=== PATIENT | female | born 1945 | race Caucasian/White ===

== ENCOUNTER 2016-12-15 07:10 | Day surgery (SDC) | payer OTHER, BC ==
[2016-12-15 07:54] VITALS: BMI 51.2
[2016-12-15] MEDS ORDERED: SUCCINYLCHOLINE CHLORIDE 200 MG/10 ML VIAL ONE (07:58)
[2016-12-15] MEDS ORDERED: PHENYLEPHRINE HCL 10 MG/1 ML SINGLE DOSE VIAL ONE (07:58)
[2016-12-15] MEDS ORDERED: LIDOCAINE HCL/PF 2% SDV 5ML VIAL ONE (07:58)
[2016-12-15] MEDS ORDERED: PROPOFOL 20 ML ONE ×2 (07:58)
[2016-12-15 09:11] VITALS: TEMP 97.7
[2016-12-15 10:23] VITALS: BP 126/59; PULSE 58
--- NOTE | 2016-12-17 11:20 | PATH ---
Surgical Pathology Report Patient Name: GUS GENTILE [facility]. Rec. #: [id number] /Age/Gender: 1945 (Age: 71) / F Account: [id number] Location: [facility]-ENDOSCOPY Taken: 12/15/2016 Received: 12/15/2016 Reported: 12/16/2016 Physicians: Genaro Kitchen M.D. Specimen(s) Received A: BX SMALL INTESTINE B: BX STOMACH C: RIGHT COLON POLYP D: BX SIGMOID COLON POLYP Clinical History Iron deficiency anemia Duodenitis, gastritis, hiatal hernia, AVM, diverticulosis, colon polyps, redundant sigmoid colon Final Diagnosis A. SMALL INTESTINE, BIOPSY: DUODENAL TYPE MUCOSA WITH CHRONIC INFLAMMATION, [place]ARE[place]'S GLANDS HYPERPLASIA AND FOCAL MILD VILLOUS FLATTENING; NO INCREASE IN INTRAEPITHELIAL LYMPHOCYTES (SEE COMMENT). Comment: The finding of mild villous flattening is nonspecific and may be seen in gluten sensitive enteropathy (see with disease) and chronic duodenitis. In the presence of chronic inflammation the finding is likely related to chronic duodenitis. Serological correlations are suggested if clinically indicated. B. STOMACH, BIOPSY: GASTRIC OXYNTIC MUCOSA WITH MODERATE CHRONIC GASTRITIS. IMMUNOSTAIN FOR H. PYLORI IS NEGATIVE FOR ORGANISMS. C. COLON, RIGHT, POLYP, POLYPECTOMY: FRAGMENTS OF TUBULAR ADENOMA. D. COLON, SIGMOID, POLYP, BIOPSY: FRAGMENTS OF HYPERPLASTIC POLYP. Electronically Signed Saulo Sanchez M.D. Gross Description A. Received in formalin, labeled "biopsy small intestine" are 3 carras[place], irregular portions of soft tissue ranging from 0.2-0.4 cm in greatest dimension. The specimens are submitted in toto in one cassette. B. Received in formalin, labeled "biopsy stomach" are 2 carrasco, irregular portions of soft tissue measuring 0.1 and 0.6 cm in greatest dimension. The specimens are submitted in toto in one cassette. C. Received in formalin, labeled "right colon polyp" are 2 carrasco, irregular portions of soft tissue averaging 0.2 cm in greatest dimension. The specimens are submitted in toto in one cassette. D. Received in formalin, labeled "biopsy sigmoid colon polyp" are 2 carrasco, irregular portions of soft tissue measuring 0.2 and 0.3 cm in greatest dimension. The specimens are submitted in toto in one cassette. DL/12/15/2016 [facility]/12/15/2016
== END 2016-12-15 10:36 | disposition home or self-care (01) ==
LOC: JASU-ENDO 07:10
PROVIDERS: ATTEND Internal Medicine Gastroenterology
PROC: 0DBN8ZX Excision of Sigmoid Colon, Via Natural or Artificial Opening Endoscopic, Diagnostic (ICD-10-PCS; 2016-12-15)
PROC: 0DB98ZX Excision of Duodenum, Via Natural or Artificial Opening Endoscopic, Diagnostic (ICD-10-PCS; 2016-12-15)
PROC: 0DB68ZX Excision of Stomach, Via Natural or Artificial Opening Endoscopic, Diagnostic (ICD-10-PCS; 2016-12-15)
PROC: 0DBK8ZX Excision of Ascending Colon, Via Natural or Artificial Opening Endoscopic, Diagnostic (ICD-10-PCS; principal; 2016-12-15 08:00)
DX: D50.9 Iron deficiency anemia, unspecified (principal); K55.20 Angiodysplasia of colon without hemorrhage; D12.2 Benign neoplasm of ascending colon; D12.5 Benign neoplasm of sigmoid colon; K57.30 Diverticulosis of large intestine without perforation or abscess without bleeding; K64.8 Other hemorrhoids; K29.80 Duodenitis without bleeding; K44.9 Diaphragmatic hernia without obstruction or gangrene; K29.70 Gastritis, unspecified, without bleeding; K29.71 Gastritis, unspecified, with bleeding
CPT/HCPCS: 88305-TC; 88342-TC

== ENCOUNTER 2020-01-30 08:07 | Day surgery (SDC) | payer OTHER, BC ==
[2020-01-30 08:37] VITALS: BMI 45.7
[2020-01-30 09:53] VITALS: TEMP 97.7
[2020-01-30 10:43] VITALS: BP 137/48; PULSE 60
--- NOTE | 2020-02-01 15:44 | PATH ---
Surgical Pathology Report Patient Name: GUS GENTILE [facility]. Rec. #: [id number] /Age/Gender: 1945 (Age: 74) / F Account: [id number] Location: U-ENDOSCOPY Taken: 01/30/2020 Received: 01/30/2020 Reported: 02/01/2020 Physicians: Esteban Dias M.D. Specimen(s) Received A: SECOND PORTION DUODENAL AND DUODENAL BULB B: ANTRUM C: DISTAL AND MID ESOPHAGUS D: CECAL POLYP E: RIGHT COLON POLYP F: PROXIMAL TRANSVERSAL COLON POLYP G: SIMOID COLON POLYPS H: RECTAL POLYP Clinical History GERD, colon polyps surveillance Postoperative diagnosis: Hiatal hernia, GERD, diverticulosis, colon polyps, AVM Final Diagnosis A. SECOND PORTION DUODENUM AND DUODENAL BULB, BIOPSY: DUODENAL MUCOSA WITH NONSPECIFIC CHRONIC DUODENITIS B. ANTRUM, BIOPSY: GASTRIC MUCOSA WITH CHRONIC GASTRITIS. IMMUNOSTAIN FOR H. PYLORI IS NEGATIVE. NEGATIVE FOR INTESTINAL METAPLASIA. Comment: Immunostain for H. pylori performed at [facility]/[place], [place] ([id number]) and interpreted at [facility] Positive and negative controls (internal if applicable) show appropriate results. C. DISTAL AND MID ESOPHAGUS, BIOPSY: SQUAMOUS MUCOSA WITH NO SIGNIFICANT PATHOLOGIC CHANGE. NO HISTOLOGIC EVIDENCE OF EOSINOPHILIC ESOPHAGITIS. D. CECAL POLYP, BIOPSY: COLONIC MUCOSA WITH BENIGN REACTIVE INVASIVE IN THE LAMINA PROPRIA. E. RIGHT COLON POLYP, POLYPECTOMY: TUBULAR ADENOMA. F. PROXIMAL TRANSVERSE COLON POLYP, POLYPECTOMY: HYPERPLASTIC POLYP. G. SIGMOID COLON POLYPS, POLYPECTOMY: HYPERPLASTIC POLYP, TWO FRAGMENTS. H. RECTAL POLYP, POLYPECTOMY: HYPERPLASTIC POLYP. Electronically Signed Lorin Newton M.D. Gross Description A. Received in formalin, labeled "biopsy second portion of duodenum and bulb" are 3 carrasco, irregular portions of soft tissue ranging from 0.3-0.5 cm. in greatest dimension. The specimens are submitted in toto in one cassette. B. Received in formalin, labeled "biopsy antrum" are 2 carrasco, irregular portions of soft tissue measuring 0.3 and 0.4 cm. in greatest dimension. The specimens are submitted in toto in one cassette. C. Received in formalin, labeled "biopsy distal and mid esophagus" are 4 carrasco, irregular portions of soft tissue ranging from 0.2-0.3 cm. in greatest dimension. The specimens are submitted in toto in one cassette. D. Received in formalin, labeled "biopsy cecal polyp" is a carrasco, irregular portion of soft tissue measuring 0.5 cm. in greatest dimension. The specimen is submitted in toto in one cassette. E. Received in formalin, labeled "biopsy right colon polyp" are 3 carrasco, irregular portions of soft tissue ranging from 0.2-0.3 cm. in greatest dimension. The specimens are submitted in toto in one cassette. F. Received in formalin, labeled "biopsy transverse colon polyp" are 2 carrasco, irregular portions of soft tissue measuring 0.2 and 0.3 cm. in greatest dimension. The specimens are submitted in toto in one cassette. G. Received in formalin, labeled "biopsy sigmoid colon polyp" are 3 carrasoc, irregular portions of soft tissue ranging from 0.2-0.3 cm. in greatest dimension. The specimens are submitted in toto in one cassette. H. Received in formalin, labeled "biopsy rectal polyp" are 3 carrasco, irregular portions of soft tissue ranging from 0.2-0.3 cm. in greatest dimension. The specimens are submitted in toto in one cassette. 01/30/2020 [facility]01/30/2020
== END 2020-01-30 11:57 | disposition home or self-care (01) ==
LOC: JASU-ENDO 08:07
PROVIDERS: ATTEND Internal Medicine Gastroenterology
PROC: 0DBL8ZX Excision of Transverse Colon, Via Natural or Artificial Opening Endoscopic, Diagnostic (ICD-10-PCS; 2020-01-30)
PROC: 0DBN8ZX Excision of Sigmoid Colon, Via Natural or Artificial Opening Endoscopic, Diagnostic (ICD-10-PCS; 2020-01-30)
PROC: 0DBP8ZX Excision of Rectum, Via Natural or Artificial Opening Endoscopic, Diagnostic (ICD-10-PCS; 2020-01-30)
PROC: 0DBH8ZX Excision of Cecum, Via Natural or Artificial Opening Endoscopic, Diagnostic (ICD-10-PCS; 2020-01-30)
PROC: 0DB38ZX Excision of Lower Esophagus, Via Natural or Artificial Opening Endoscopic, Diagnostic (ICD-10-PCS; 2020-01-30)
PROC: 0DB68ZX Excision of Stomach, Via Natural or Artificial Opening Endoscopic, Diagnostic (ICD-10-PCS; 2020-01-30)
PROC: 0DB28ZX Excision of Middle Esophagus, Via Natural or Artificial Opening Endoscopic, Diagnostic (ICD-10-PCS; 2020-01-30)
PROC: 0DBK8ZX Excision of Ascending Colon, Via Natural or Artificial Opening Endoscopic, Diagnostic (ICD-10-PCS; principal; 2020-01-30 09:00)
DX: Z86.010 Personal history of colon polyps (principal); D12.0 Benign neoplasm of cecum; D12.2 Benign neoplasm of ascending colon; D12.3 Benign neoplasm of transverse colon; D12.5 Benign neoplasm of sigmoid colon; D12.8 Benign neoplasm of rectum; K57.30 Diverticulosis of large intestine without perforation or abscess without bleeding; K55.20 Angiodysplasia of colon without hemorrhage; K44.9 Diaphragmatic hernia without obstruction or gangrene; K21.9 Gastro-esophageal reflux disease without esophagitis; K29.80 Duodenitis without bleeding; K29.50 Unspecified chronic gastritis without bleeding; I10 Essential (primary) hypertension; E78.5 Hyperlipidemia, unspecified; E66.01 Morbid (severe) obesity due to excess calories; Z68.42 Body mass index [BMI] 45.0-49.9, adult
CPT/HCPCS: 88305-TC

== ENCOUNTER 2022-11-07 13:12 | Day surgery (SDC) | payer OTHER ==
[~2022-11-07 13:12] MED LIST: IRON SUCROSE INJECTION 200 MG in SODIUM CHLORIDE 100 ML IVPB ONE
[2022-11-07 14:14] VITALS: TEMP 98.3
[2022-11-07 14:41] VITALS: BP 121/49; PULSE 63; RESP 18
== END 2022-11-07 14:47 | disposition home or self-care (01) ==
LOC: JONCNONCHE 13:12
PROVIDERS: ATTEND Internal Medicine Hematology & Oncology
PROC: 3E033GC Introduction of Other Therapeutic Substance into Peripheral Vein, Percutaneous Approach (ICD-10-PCS; principal; 2022-11-07)
DX: D50.9 Iron deficiency anemia, unspecified (principal)
CPT/HCPCS: 96365; J1756

== ENCOUNTER 2022-11-14 12:56 | Day surgery (SDC) | payer OTHER ==
[2022-11-14 17:46] VITALS: RESP 18; TEMP 98.5
[2022-11-14 17:49] VITALS: BP 86/37; PULSE 56
== END 2022-11-14 14:30 | disposition home or self-care (01) ==
LOC: JONCNONCHE 12:56
PROVIDERS: ATTEND Internal Medicine Hematology & Oncology
PROC: 3E033GC Introduction of Other Therapeutic Substance into Peripheral Vein, Percutaneous Approach (ICD-10-PCS; principal; 2022-11-14)
DX: D50.9 Iron deficiency anemia, unspecified (principal)
CPT/HCPCS: 96365; J1756

== ENCOUNTER 2022-11-21 12:36 | Day surgery (SDC) | payer OTHER ==
[2022-11-21 17:15] VITALS: BP 108/64; PULSE 55; RESP 20; TEMP 98.1
== END 2022-11-21 13:50 | disposition home or self-care (01) ==
LOC: JONCNONCHE 12:36
PROVIDERS: ATTEND Internal Medicine Hematology & Oncology
PROC: 3E033GC Introduction of Other Therapeutic Substance into Peripheral Vein, Percutaneous Approach (ICD-10-PCS; principal; 2022-11-21)
DX: D50.9 Iron deficiency anemia, unspecified (principal)
CPT/HCPCS: 96365; J1756

== ENCOUNTER 2022-11-28 12:45 | Day surgery (SDC) | payer OTHER ==
[2022-11-28 16:31] VITALS: TEMP 98.2
[2022-11-28 16:32] VITALS: BP 137/46; PULSE 58; RESP 19
== END 2022-11-28 14:00 | disposition home or self-care (01) ==
LOC: JONCNONCHE 12:45 → J7W 14:13
PROVIDERS: ATTEND Internal Medicine Hematology & Oncology
PROC: 3E033GC Introduction of Other Therapeutic Substance into Peripheral Vein, Percutaneous Approach (ICD-10-PCS; principal; 2022-11-28)
DX: D50.9 Iron deficiency anemia, unspecified (principal)
CPT/HCPCS: 96365; J1756

== ENCOUNTER 2022-12-05 13:15 | Day surgery (SDC) | payer OTHER, BC ==
[~2022-12-05 13:15] MED LIST changes: +HYDROCORTISONE SOD SUCCINATE 100 MG/2 ML VIAL IVPUSH PRN; +IRON SUCROSE INJECTION 200 MG in SODIUM CHLORIDE 90 ML IVPB ONE; +diphenhydrAMINE HCL 25 MG CAPSULE (FP) PO PRN
[2022-12-05 15:36] VITALS: RESP 18; TEMP 98.3
[2022-12-05 15:46] VITALS: BP 97/55; PULSE 58
== END 2022-12-05 13:40 | disposition home or self-care (01) ==
LOC: JONCNONCHE 13:15 → J7W 13:16 → JONCNONCHE 13:40
PROVIDERS: ATTEND Internal Medicine Hematology & Oncology
PROC: 3E033GC Introduction of Other Therapeutic Substance into Peripheral Vein, Percutaneous Approach (ICD-10-PCS; principal; 2022-12-05)
DX: D50.9 Iron deficiency anemia, unspecified (principal)
CPT/HCPCS: 96365; J1756

== ENCOUNTER 2022-12-12 12:49 | Day surgery (SDC) | payer OTHER, BC ==
[~2022-12-12 12:49] MED LIST changes: -IRON SUCROSE INJECTION 200 MG in SODIUM CHLORIDE 100 ML IVPB ONE
[2022-12-12 16:39] VITALS: BP 119/44; PULSE 55; RESP 20; TEMP 97.9
== END 2022-12-12 14:00 | disposition home or self-care (01) ==
LOC: JONCNONCHE 12:49 → J7W 12:50 → JONCNONCHE 14:00
PROVIDERS: ATTEND Internal Medicine Hematology & Oncology
PROC: 3E033GC Introduction of Other Therapeutic Substance into Peripheral Vein, Percutaneous Approach (ICD-10-PCS; principal; 2022-12-12)
DX: D50.9 Iron deficiency anemia, unspecified (principal)
CPT/HCPCS: 96365; J1756

== ENCOUNTER 2022-12-26 13:20 | Day surgery (SDC) | payer OTHER, BC ==
[~2022-12-26 13:20] MED LIST changes: -HYDROCORTISONE SOD SUCCINATE 100 MG/2 ML VIAL IVPUSH PRN; +IRON SUCROSE COMPLEX 200 MG in SODIUM CHLORIDE 100 ML IVPB ONE; -IRON SUCROSE INJECTION 200 MG in SODIUM CHLORIDE 90 ML IVPB ONE; -diphenhydrAMINE HCL 25 MG CAPSULE (FP) PO PRN
[2022-12-26 16:51] VITALS: BP 115/70; PULSE 58; RESP 20; TEMP 97.8
== END 2022-12-26 13:55 | disposition home or self-care (01) ==
LOC: JONCNONCHE 13:20 → J7W 13:23 → JONCNONCHE 13:55
PROVIDERS: ATTEND Internal Medicine Hematology & Oncology
PROC: 3E033GC Introduction of Other Therapeutic Substance into Peripheral Vein, Percutaneous Approach (ICD-10-PCS; principal; 2022-12-26)
DX: D50.9 Iron deficiency anemia, unspecified (principal)
CPT/HCPCS: 96365

== ENCOUNTER 2023-01-02 12:45 | Day surgery (SDC) | payer OTHER ==
[2023-01-02 14:42] VITALS: BP 124/58; PULSE 58; RESP 20
[2023-01-02 15:01] VITALS: TEMP 98.3
== END 2023-01-02 13:55 | disposition home or self-care (01) ==
LOC: JONCNONCHE 12:45 → J7W 12:45 → JONCNONCHE 13:55
PROVIDERS: ATTEND Internal Medicine Hematology & Oncology
PROC: 3E033GC Introduction of Other Therapeutic Substance into Peripheral Vein, Percutaneous Approach (ICD-10-PCS; principal; 2023-01-02)
DX: D50.9 Iron deficiency anemia, unspecified (principal)
CPT/HCPCS: 96365

== ENCOUNTER 2023-01-09 13:44 | Day surgery (SDC) | payer OTHER ==
[2023-01-09 14:50] VITALS: BP 125/53; PULSE 53; RESP 18; TEMP 98
== END 2023-01-09 14:25 | disposition home or self-care (01) ==
LOC: JONCNONCHE 13:44 → J7W 13:45 → JONCNONCHE 14:25
PROVIDERS: ATTEND Internal Medicine Hematology & Oncology
DX: D50.9 Iron deficiency anemia, unspecified (principal)
CPT/HCPCS: 96365

== ENCOUNTER 2023-01-16 11:39 | Day surgery (SDC) | payer OTHER ==
[2023-01-16 16:28] VITALS: BP 140/97; PULSE 60; RESP 20; TEMP 98.1
== END 2023-01-16 13:00 | disposition home or self-care (01) ==
LOC: JONCNONCHE 11:39 → J7W 11:40 → JONCNONCHE 13:00
PROVIDERS: ATTEND Internal Medicine Hematology & Oncology
PROC: 3E033GC Introduction of Other Therapeutic Substance into Peripheral Vein, Percutaneous Approach (ICD-10-PCS; principal; 2023-01-16)
DX: D50.9 Iron deficiency anemia, unspecified (principal)
CPT/HCPCS: 96365

== ENCOUNTER 2023-04-29 04:26 | Day surgery (SDC) | payer OTHER, BC ==
[2023-04-22 14:13] VITALS: BMI 47.2
[2023-04-29 11:45] VITALS: BP 106/54; PULSE 52; RESP 18; TEMP 97
== END 2023-04-29 11:45 | disposition home or self-care (01) ==
LOC: JASU-ENDO 04:26
PROVIDERS: ATTEND Internal Medicine Gastroenterology
PROC: 0DB68ZX Excision of Stomach, Via Natural or Artificial Opening Endoscopic, Diagnostic (ICD-10-PCS; 2023-04-29)
PROC: 0DB28ZX Excision of Middle Esophagus, Via Natural or Artificial Opening Endoscopic, Diagnostic (ICD-10-PCS; 2023-04-29)
PROC: 0DB38ZX Excision of Lower Esophagus, Via Natural or Artificial Opening Endoscopic, Diagnostic (ICD-10-PCS; 2023-04-29)
PROC: 0DBN8ZX Excision of Sigmoid Colon, Via Natural or Artificial Opening Endoscopic, Diagnostic (ICD-10-PCS; 2023-04-29)
PROC: 0DB98ZX Excision of Duodenum, Via Natural or Artificial Opening Endoscopic, Diagnostic (ICD-10-PCS; principal; 2023-04-29 10:00)
DX: Z12.11 Encounter for screening for malignant neoplasm of colon (principal); D50.9 Iron deficiency anemia, unspecified; D12.5 Benign neoplasm of sigmoid colon; K57.30 Diverticulosis of large intestine without perforation or abscess without bleeding; Z86.010 Personal history of colon polyps; K29.80 Duodenitis without bleeding; K44.9 Diaphragmatic hernia without obstruction or gangrene; K29.50 Unspecified chronic gastritis without bleeding

== ENCOUNTER 2023-10-05 22:10 | Emergency (ER) | payer OTHER, BC ==
[2023-10-05] MEDS ORDERED: FLUORESCEIN NA 1 EA STRIP ONE (22:16)
[2023-10-05] MEDS ORDERED: TETRACAINE 0.5% OPHTH SOLN 2 ML BOTTLE ONE (22:16)
[2023-10-05 22:21] VITALS: BP 137/69; PULSE 64; RESP 16; TEMP 98.2; BMI 43.9
[2023-10-05] MEDS ORDERED: TOBRA 0.3%/DEXAMETH 0.1% OPHTHALMIC SUSP 2.5 ML BTL ONE (22:23)
[2023-10-05] MEDS: TOBRA 0.3%/DEXAMETH 0.1% OPHTHALMIC SUSP 2.5 ML BTL OD STA (22:25)
== END 2023-10-05 22:43 | disposition home or self-care (01) ==
LOC: FER 22:10
DX: S05.01XA Injury of conjunctiva and corneal abrasion without foreign body, right eye, initial encounter (principal); X58.XXXA Exposure to other specified factors, initial encounter
CPT/HCPCS: 99283-25